=== PATIENT | female | born 2005 | race Caucasian/White ===

== ENCOUNTER 2025-06-18 11:46 | Emergency (ER) | payer SELFPAY ==
[2025-06-18 11:56] VITALS: BP 141/88; PULSE 84; RESP 18; TEMP 36.6; O2SAT 98
--- NOTE | 2025-06-18 13:40 | ED.GENADULT ---
HPI - General Adult General Date Seen: 06/18/25 Chief complaint: Back Injury/Pain Stated complaint: Hip and back pain Time Seen by Provider: 06/18/25 13:38 History of Present Illness HPI narrative: 20 yo F presenting to the ER today for evaluation of back pain, and left hip/leg pain. She did see her doctor in [facility] yesterday. According to that note she had been experiencing pain since the end of March, 2 months ago that had gotten worse lately. It initially she had been seeing a chiropractor and getting better. Tends to be worst in the morning and gets better throughout the day. It radiates down her left leg. No urinary symptoms. No fever. Normal bowel habits. No abdominal pain. She has been using Tylenol and ibuprofen. His impression was acute on chronic left hip and low back pain with differential including musculoskeletal, lumbar spine, gluteal strain or lumbar strain. He placed a referral to physical therapy. Recommended Tylenol and ibuprofen for pain management. Also prescription for cyclobenzaprine-15 tablets p.r.n.. History per patient is that she has had pain affecting her low back and in down in her left hip for the past 2 or 3 months, ever since March. No injury at the outset. Initially the pain was fairly mild and manageable with rest and Tylenol or ibuprofen. Lately the pain has been getting worse. It has also been radiating from her low back down her left leg it through the left hip, left thigh, left calf and down to the lateral ankle and top of foot. She is not having any numbness or weakness in her legs. No giving out but sometimes she feels like her leg is a little bit unsteady. Urination has been normal until overnight when she noted a little bit of sensation of needing to urinate but not voiding very much. No hematuria, dysuria, urgency, frequency. No fever or chills. She has no history of immunosuppression or diabetes. No history of malignancy. She is not anticoagulated. No history of coagulopathy. Her pain has been much more intense for the past 2 or 3 nights and she has not been able to sleep, even with ibuprofen. She try the prescription Flexeril that was given to her by the doctor yesterday but has not helped. She came to the ER today desiring something stronger for pain. She has already called the [facility] and is set up to see the spine clinic in 6 days, next . Related Data Home Medications ?Medication ?Instructions ?Recorded ?Confirmed cyclobenzaprine 10 mg tablet 10 mg PO 3XD 06/18/25 06/18/25 Previous Rx's ?Medication ?Instructions ?Recorded gabapentin 300 mg capsule 300 mg PO BID #14 caps 06/18/25 hydrocodone 5 mg-acetaminophen 325 1 - 2 tab PO Q4-6H PRN pain #10 06/18/25 mg tablet tabs methylprednisolone 4 mg tablets in See Rx Instructions PO .COMPLEX 06/18/25 a dose pack (Medrol (Jesse)) #21 ea Allergies Allergy/AdvReac Type Severity Reaction Status Date / Time No Known Drug Allergies Allergy Verified 06/18/25 12:02 Exam Narrative: Exam Narrative: Constitutional: Appears well-developed and well-nourished. Alert. Conversant. Non toxic. HENT: Head: Atraumatic. Nose: Nose normal. Mouth/Throat: Oral mucosa is clear and moist. no trismus. Pharynx normal. Tonsils symmetric. No tonsillar enlargement, erythema, or exudate. Eyes: Conjunctivae normal. EOM normal. Pupils equal, round, and reactive to light. No scleral icterus. Neck: Normal range of motion. Neck supple. No tracheal deviation present. Cardiovascular: Normal rate, regular rhythm. No gallop. No friction rub. No murmur heard. Symmetric radial artery pulses Pulmonary/Chest: Effort normal. No stridor. No respiratory distress. No wheezes. No rales. No rhonchi . No tenderness. Abdominal: Soft. Bowel sounds normal. No distension. No mass. No tenderness. No rebound. No guarding. Musculoskeletal: She is endorsing pain in her left lumbar paraspinous muscles. No tenderness. There. No rash. No bruising. No midline tenderness or step-off. Pelvis is stable. No tenderness over the posterior pelvis, SI joints, trochanter, or hip. Normal range of motion in her left hip with full flexion and extension. Normal internal external rotation. She is able to stand and bear weight on each leg. No instability. No tenderness of the femur, knee, calf, tibia, fibula, ankle, or foot. RUE: Normal range of motion. No tenderness. No deformity LUE: Normal range of motion. No tenderness. No deformity RLE: Normal range of motion. No edema. No tenderness. No deformity LLE: Normal range of motion. No edema. No tenderness. No deformity Neurological: Alert and oriented to person, place, and time. Normal strength. CN II-VII intact. No sensory deficit. GCS eye subscore is 4. GCS verbal subscore is 5. GCS motor subscore is 6. Normal coordination Sensory: Normal light touch sensation bilaterally on the anteromedial thigh (L3), medial malleolus (L4), dorsal first web space (L5), lateral malleolus (S1). Strength: She is endorsing a radicular-type pain through her left hip, thigh, calf and down into the lateral ankle dorsum of the foot that could be a L5 dermatome. 5/5 strength hip flexors (L3) on the right and left 5/5 strength in the quadriceps (L4) on the right and left 5/5 strength in the tibialis anterior 5/5 strength in the EHL (L5) on the right and left 5/5 strength in the gastrocnemius (S1) on the right and left 5/5 strength in the hamstring on the right and left DTRs: symmetric in the patella (2/4). Negative straight leg raise bilaterally. Skin: Skin is warm and dry. No rash noted. No pallor. Normal capillary refill. Psychiatric: Normal mood. Normal affect. Const: Vital Signs, click to edit/add: Vital Signs - 24 hr 06/18/25 11:56 06/18/25 14:25 Temperature 97.9 F Pulse Rate 72 Pulse Rate [Right Pulse Oximeter] 84 Respiratory Rate 18 16 Blood Pressure 127/92 H Blood Pressure [Ri ght Upper Arm] 141/88 H Pulse Oximetry 98 95 Oxygen Delivery Me thod Room Air Room Air Course Vital Signs Vital signs: Initial Vital Signs Temperature 97.9 F 06/18/25 11:56 Temperature Source Temporal Artery Scan 06/18/25 11:56 Pulse Rate 84 06/18/25 11:56 Pulse Rhythm Regular 06/18/25 11:56 Pulse Strength 3+ Normal 06/18/25 11:56 Respiratory Rate 18 06/18/25 11:56 Blood Pressure 141/88 H 06/18/25 11:56 Blood Pressure Mean 105 06/18/25 11:56 Blood Pressure Position Sitting 06/18/25 11:56 Pulse Oximetry 98 06/18/25 11:56 Oxygen Delivery Method Room Air 06/18/25 11:56 Vital Signs Temperature 97.9 F 06/18/25 11:56 Pulse Rate 84 06/18/25 11:56 Respiratory Rate 18 06/18/25 11:56 Blood Pressure 141/88 H 06/18/25 11:56 Pulse Oximetry 98 06/18/25 11:56 Oxygen Delivery Method Room Air 06/18/25 11:56 Temperature 97.9 F 06/18/25 11:56 Pulse Rate 72 06/18/25 14:25 Respiratory Rate 16 06/18/25 14:25 Blood Pressure 127/92 H 06/18/25 14:25 Pulse Oximetry 95 06/18/25 14:25 Oxygen Delivery Method Room Air 06/18/25 14:25 Medications Administered Medications: Discontinued Medications Generic Name Dose Route Start Last Admin Trade Name Freq PRN Reason Stop Dose Admin Hydrocodone Bitart/Acetaminophen 1 tab 06/18/25 14:07 06/18/25 14:23 Hydrocodone-Acetamin 5-325 Mg 1 Tab PO 06/18/25 14:08 1 tab ONCE ONE Administration Medical Decision Making MDM Narrative Medical decision making narrative: This patient presented with back pain. Broad differential considered. The patient did not sustain any trauma, therefore x-rays are not necessary due to the low likelihood of fracture or subluxation. No red flag symptoms to suggest CT and/or MRI is indicated at this point. The patient has not had a fever, saddle/perineal anesthesia, bilateral foot numbness, or bowel or bladder dysfunction. There is no clinical evidence of cauda equina syndrome, discitis, spinal/epidural space hematoma or epidural abscess. Given duration of pain and symptoms with left leg symptoms I am concerned about a probable left lumbar radiculopathy. After discussion of cost and time and expense, patient strongly wants to go ahead with MRI of her lumbar spine here. This is obtained and does confirm an L4-5 disc extrusion. Pain has improved with interventions in the emergency department. The patient will be discharged with pain medications to use as directed. Ice or heat to the back and stretching exercises. No heavy lifting, bending or twisting. Return if increasing pain, numbness, weakness, or bowel or bladder dysfunction. She has an appointment with spine clinic in 6 days. She will be sure to keep that appointment. Return precautions reviewed and questions answered. Will put her on a Medrol Dosepak, also [place] for pain, gabapentin. Imaging Data MRI L spine: Attestation: I have reviewed the pertinent imaging results. Radiologist's impression: Impression: 1. 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 2. At L5-S1, broad-based, caudally migrated right central disc extrusion contributes to moderately severe right and moderate left lateral recess stenosis. Discharge Plan Discharge Clinical Impression: Acute left lumbar radiculopathy Patient Disposition: Home, Self-Care Condition: Stable Instructions: Acute Low Back Pain (ED), Lumbar Radiculopathy (ED) Additional Instructions: As we discussed, please return to the ER right away if you have problems especially worsening weakness or numbness in your leg, bladder or bowel dysfunction, high fever, or any other concerns. Please use the prescription pain killers me if needed. Be careful because prescription pain meds can cause dizziness, drowsiness, constipation and can be addictive. You can continue on your [id number] medications with ibuprofen and Tylenol. We will also start you on a medication called gabapentin which can help with some of the pain from the pinched nerve. Gabapentin can also sometimes cause drowsiness. We are also going to start you on a steroid medication to try to reduce the swelling in the bulging disc of your low back. Prescriptions: New hydrocodone-acetaminophen 5-325 mg tablet 1 - 2 tab PO Q4-6H PRN (Reason: pain) Qty: 10 0RF methylprednisolone [Medrol (Jesse)] 4 mg tablets,dose pack See Rx Instructions .ROUTE .COMPLEX Qty: 21 0RF Rx Instructions: for 6 days gabapentin 300 mg capsule 300 mg PO BID Qty: 14 0RF No Action cyclobenzaprine 10 mg tablet 10 mg PO 3XD Follow Up/Referrals: Provider,Not a Local [Primary Care Provider, Family Practice] Stand Alone Forms: [employer] Info Instructions
--- NOTE | 2025-06-18 14:07 | CRLHL7_ITS ---
For Patients: As a result of the Century Cures Act, medical imaging exams and procedure reports are released immediately into your electronic medical record. You may view this report before your referring provider. If you have questions, please contact your health care provider. Indication: Low back pain. Technique: Multiplanar multisequence noncontrast MR images of the lumbar spine. Comparison: None. Findings: Straightening of the lumbar lordosis. Vertebral heights are maintained. No acute fracture. No T1 hypointense lesions. Normal conus terminates at L1-2. T12-L1 through L3-4: No spinal canal or neural foraminal narrowing. L4-5: Trace retrolisthesis. Moderate disc degeneration. Minimal endplate edema. Large left central disc extrusion demonstrating caudal migration measures 12 mm in anteroposterior dimension. Severe spinal canal and left lateral recess stenosis. Moderately severe right lateral recess stenosis. No neural foraminal narrowing. L5-S1: Trace retrolisthesis. Moderate disc degeneration. Minimal endplate edema. Broad-based right central disc extrusion demonstrating caudal migration and measuring 6 mm in short axis with superimposed endplate osteophytes. Minimal spinal canal narrowing. Moderately severe right and moderate left lateral recess stenosis. Minimal neural foraminal narrowing. Impression: 1. 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 2. At L5-S1, broad-based, caudally migrated right central disc extrusion contributes to moderately severe right and moderate left lateral recess stenosis. Dictated by Nir Tineo MD @ 06/18/2025 3:49:31 PM (Electronically Signed)
[2025-06-18] MEDS: HYDROCODONE-ACETAMIN 5-325 MG 1 TAB PO (14:23)
[2025-06-18 14:25] VITALS: BP 127/92; PULSE 72; RESP 16; O2SAT 95
[2025-06-18 16:29] VITALS: BP 141/86; PULSE 71; RESP 16; O2SAT 94
== END 2025-06-18 16:32 | disposition home or self-care (01) ==
PROVIDERS: Emergency Provider Emergency Medicine
DX: M54.16 Radiculopathy, lumbar region (principal)
CPT/HCPCS: 72148; 99283; 99284; A9270

== ENCOUNTER 2025-07-07 09:08 | Outpatient (CLI) | payer OTHER, SELFPAY | END 2025-07-07 09:09 | disposition home or self-care (01) | LOC: INJ CL 09:09 | PROVIDERS: Visit Provider Nurse Anesthetist, Certified Registered | DX: M54.16 Radiculopathy, lumbar region (principal); M51.26 Other intervertebral disc displacement, lumbar region | CPT/HCPCS: 64483; J0665; J1100; Q9966 ==